=== PATIENT | male | born 1990 | race Caucasian/White ===

== ENCOUNTER → 2018-11-24 | Outpatient (CLI) | payer BC ==
--- NOTE | 2018-11-24 19:03 | REP ---
Left rib series: Eight views including PA chest. History: Left-sided rib pain. Injury in a fall. Findings: PA chest radiograph demonstrates a screw plate fixation device across the mid shaft of the left clavicle. There are two opaque BB is projecting in the soft tissues along the left lateral chest wall. On oblique radiograph these project outside of the skin. Multiple views of the left rib cage show no visible rib fracture or bony destructive lesion. There is no evidence of pneumothorax or hydrothorax. Mediastinum is not widened. Heart is not enlarged. Impression: Negative left rib radiographs. Electronically Signed by Ed Jaquez MD 11/24/2018 06:54 P
== END ==
LOC: M LRY 17:48
PROVIDERS: ATTEND Nurse Practitioner Family
DX: R07.81 Pleurodynia (principal)